=== PATIENT | male | born 1965 | race Caucasian/White ===

== ENCOUNTER 2021-01-13 09:09 | Observation (INO) | payer MEDICARE, OTHER ==
--- NOTE | 2021-01-13 09:30 | ED ---
General Adult HPI - General Chief complaint: Recheck/Abnormal Lab/Rx Stated complaint: Shoulder Pain/SOB/Sent by PCP Time Seen by Provider: 01/13/21 09:21 Source: patient, RN notes reviewed Mode of arrival: ambulatory Limitations: no limitations - History of Present Illness Initial comments: Patient is a pleasant 55-year-old male presenting to the emergency department with chest and shoulder discomfort. Onset of symptoms was around 2 weeks ago. Patient has mild heaviness in his chest. Symptoms do worsen somewhat with exertion. Symptoms have been otherwise fairly stable. Patient does have dyspnea however he believes this is chronic from his smoking, unchanged. No leg pain or swelling. Patient does have strong family history of in the 50s, including his father. Patient did go see a primary care physician yesterday and was advised to come to the emergency department. - Related Data Allergies Allergy/AdvReac Type Severity Reaction Status Date / Time No Known Allergies Allergy Verified 01/13/21 09:17 Review of Systems ROS Statement: Those systems with pertinent positive or pertinent negative responses have been documented in the HPI. ROS Other: All systems not noted in ROS Statement are negative. Constitutional: Denies: fever Eyes: Denies: eye pain ENT: Denies: ear pain Respiratory: Reports: as per HPI. Denies: cough Cardiovascular: Reports: as per HPI, chest pain Endocrine: Denies: fatigue Gastrointestinal: Denies: abdominal pain Genitourinary: Denies: dysuria Musculoskeletal: Denies: back pain Skin: Denies: rash Neurological: Denies: weakness Past Medical History Past Medical History: No Reported History Past Surgical History: No Surgical Hx Reported Past Psychological History: No Psychological Hx Reported Smoking Status: Current every day smoker Past Alcohol Use History: Daily Past Drug Use History: None Reported General Exam Limitations: no limitations General appearance: alert, in no apparent distress Head exam: Present: atraumatic Eye exam: Present: normal appearance Neck exam: Present: normal inspection Respiratory exam: Present: normal lung sounds bilaterally. Absent: chest wall tenderness Cardiovascular Exam: Present: regular rate, normal rhythm Expanded Peripheral pulses: 2+: Radial (R), Radial (L), Posterior Tibialis (R), Posterior Tibialis (L) GI/Abdominal exam: Present: soft. Absent: tenderness Extremities exam: Present: normal inspection. Absent: pedal edema, calf tenderness Neurological exam: Present: alert Psychiatric exam: Present: normal affect, normal mood Skin exam: Present: normal color Course Vital Signs 01/13/21 09:14 Temperature 98.0 F Pulse Rate 77 Respiratory 18 Rate Blood Pressure 141/79 O2 Sat by Pulse 98 Oximetry EKG Findings - EKG Comments: EKG Findings:: Normal sinus rhythm with rate of 77. AR 144. QRS 90. QT 378. QTC or 27. Normal axis. There is some ST changes, possibly from early repolarization. Normal QRS. Medical Decision Making - Medical Decision Making Patient reevaluated and symptom-free with nitroglycerin. Patient updated on results and plan. Case was discussed with Dr. Emanuel, covering for Dr. Gonzalez, who will admit. Case was earlier discussed with Dr. Hawthorne who agreed EKG changes were repolarization. - Lab Data Result diagrams: 01/13/21 09:36 01/13/21 09:36 Lab Results 01/13/21 01/13/21 01/13/21 Range/Units 09:36 09:36 09:36 WBC 6.3 (3.8-10.6) k/uL RBC 4.78 (4.30-5.90) m/uL Hgb 16.8 (13.0-17.5) gm/dL Hct 47.8 (39.0-53.0) % MCV 99.8 (80.0-100.0) fL MCH 35.1 H (25.0-35.0) pg MCHC 35.2 (31.0-37.0) g/dL RDW 13.0 (11.5-15.5) % Plt Count 258 (150-450) k/uL MPV 6.9 Neutrophils % 60 % Lymphocytes % 27 % Monocytes % 8 % Eosinophils % 4 % Basophils % 1 % Neutrophils # 3.8 (1.3-7.7) k/uL Lymphocytes # 1.7 (1.0-4.8) k/uL Monocytes # 0.5 (0-1.0) k/uL Eosinophils # 0.2 (0-0.7) k/uL Basophils # 0.1 (0-0.2) k/uL PT 10.3 (9.0-12.0) sec INR 1.0 (<1.2) APTT 22.6 (22.0-30.0) sec D-Dimer 0.28 (<0.60) mg/L FEU Sodium 138 (137-145) mmol/L Potassium 4.8 (3.5-5.1) mmol/L Chloride 107 (98-107) mmol/L Carbon Dioxide 26 (22-30) mmol/L Anion Gap 5 mmol/L BUN 16 (9-20) mg/dL Creatinine 0.89 (0.66-1.25) mg/dL Est GFR (CKD-EPI)AfAm >90 (>60 ml/min/1.73 sqM) Est GFR (CKD-EPI)NonAf >90 (>60 ml/min/1.73 sqM) Glucose 103 H (74-99) mg/dL Calcium 9.9 (8.4-10.2) mg/dL Magnesium 2.1 (1.6-2.3) mg/dL Total Bilirubin 0.6 (0.2-1.3) mg/dL AST 38 (17-59) U/L ALT 35 (4-49) U/L Alkaline Phosphatase 67 (38-126) U/L Troponin I (0.000-0.034) ng/mL Total Protein 7.1 (6.3-8.2) g/dL Albumin 4.7 (3.5-5.0) g/dL 01/13/21 Range/Units 09:36 WBC (3.8-10.6) k/uL RBC (4.30-5.90) m/uL Hgb (13.0-17.5) gm/dL Hct (39.0-53.0) % MCV (80.0-100.0) fL MCH (25.0-35.0) pg MCHC (31.0-37.0) g/dL RDW (11.5-15.5) % Plt Count (150-450) k/uL MPV Neutrophils % % Lymphocytes % % Monocytes % % Eosinophils % % Basophils % % Neutrophils # (1.3-7.7) k/uL Lymphocytes # (1.0-4.8) k/uL Monocytes # (0-1.0) k/uL Eosinophils # (0-0.7) k/uL Basophils # (0-0.2) k/uL PT (9.0-12.0) sec INR (<1.2) APTT (22.0-30.0) sec D-Dimer (<0.60) mg/L FEU Sodium (137-145) mmol/L Potassium (3.5-5.1) mmol/L Chloride (98-107) mmol/L Carbon Dioxide (22-30) mmol/L Anion Gap mmol/L BUN (9-20) mg/dL Creatinine (0.66-1.25) mg/dL Est GFR (CKD-EPI)AfAm (>60 ml/min/1.73 sqM) Est GFR (CKD-EPI)NonAf (>60 ml/min/1.73 sqM) Glucose (74-99) mg/dL Calcium (8.4-10.2) mg/dL Magnesium (1.6-2.3) mg/dL Total Bilirubin (0.2-1.3) mg/dL AST (17-59) U/L ALT (4-49) U/L Alkaline Phosphatase (38-126) U/L Troponin I <0.012 (0.000-0.034) ng/mL Total Protein (6.3-8.2) g/dL Albumin (3.5-5.0) g/dL Disposition Clinical Impression: Chest pain Disposition: ADMITTED IP TO THIS [facility] Is patient prescribed a controlled substance at d/c from ED?: No Referrals: Pawan Gonzalez MD [Primary Care Provider] - 1-2 days Decision Time: 11:22
[2021-01-13] MEDS ORDERED: NITROGLYCERIN OINT 1 INCH/GM PACKET TOPICAL STA (09:33)
[2021-01-13] MEDS ORDERED: ASPIRIN 81 MG PO STA (09:33)
[2021-01-13 09:44] LABS: Basophils # (A) 0.1 k/uL (0-0.2); Basophils % (A) 1 %; Eosinophils # (A) 0.2 k/uL (0-0.7); Eosinophils % (A) 4 %; HCT 47.8 % (39.0-53.0); HGB 16.8 gm/dL (13.0-17.5); Lymphocytes # (A) 1.7 k/uL (1.0-4.8); Lymphocytes % (A) 27 %; MCH 35.1 pg (25.0-35.0); MCHC 35.2 g/dL (31.0-37.0); MCV 99.8 fL (80.0-100.0); Mean Platelet Volume 6.9; Monocytes # (A) 0.5 k/uL (0-1.0); Monocytes % (A) 8 %; Neutrophils # (A) 3.8 k/uL (1.3-7.7); Neutrophils % (A) 60 %; Platelet Count 258 k/uL (150-450); RBC 4.78 m/uL (4.30-5.90); WBC 6.3 k/uL (3.8-10.6)
[2021-01-13 09:53] LABS: ALT 35 U/L (4-49); AST 38 U/L (17-59); African American GFR (CKD) >90 (>60 ml/min/1.73 sqM); Albumin 4.7 g/dL (3.5-5.0); Alkaline Phosphatase 67 U/L (38-126); Anion Gap 5 mmol/L; Blood Urea Nitrogen 16 mg/dL (9-20); Calcium 9.9 mg/dL (8.4-10.2); Carbon Dioxide 26 mmol/L (22-30); Chloride 107 mmol/L (98-107); Glucose 103 mg/dL (74-99); Magnesium 2.1 mg/dL (1.6-2.3); Non-African American GFR(CKD) >90 (>60 ml/min/1.73 sqM); Potassium 4.8 mmol/L (3.5-5.1); Sodium 138 mmol/L (137-145); Total Bilirubin 0.6 mg/dL (0.2-1.3); Total Protein 7.1 g/dL (6.3-8.2)
--- NOTE | 2021-01-13 09:57 | XR ---
EXAMINATION TYPE: XR chest 2V DATE OF EXAM: 01/13/2021 COMPARISON: NONE HISTORY: Shortness of breath TECHNIQUE: Frontal and lateral views of the chest are obtained. FINDINGS: Scattered senescent parenchymal changes noted. Hyperinflation compatible with COPD. No evidence for infiltrate. No evidence for atelectasis. Heart size is stable. Mediastinal structures are stable and grossly unremarkable. No evidence for hilar prominence. Degenerative changes dorsal spine. IMPRESSION: 1. No evidence for acute pulmonary disease.
[2021-01-13 10:01] LABS: D-Dimer 0.28 mg/L FEU (<0.60); Partial Thromboplastin Time 22.6 sec (22.0-30.0); Prothrombin Time 10.3 sec (9.0-12.0)
[2021-01-13] MEDS ORDERED: NITROGLYCERIN SL TABS 0.4 MG TAB SUBLINGUAL PRN (11:23)
[2021-01-13] MEDS ORDERED: HYDROcodone/APAP 5-325MG 1 EACH TAB PO PRN (15:23)
[2021-01-13] MEDS ORDERED: HYDROmorphone 0.5 MG/0.5 ML SYRINGE IVP PRN (15:23)
[2021-01-13] MEDS ORDERED: ALPRAZolam 0.25 MG TAB PO PRN (15:23)
[2021-01-13] MEDS ORDERED: TEMAZEPAM 15 MG CAP PO PRN (15:23)
--- NOTE | 2021-01-13 16:33 | HP ---
HISTORY AND PHYSICAL DATE OF SERVICE: 01/13/2021 CHIEF COMPLAINT: Shoulder pain and chest pain. HISTORY OF PRESENT ILLNESS: This 55-year-old gentleman with a past medical history of no significant medical issues being followed by Dr. Pawan Gonzalez was admitted with chest and shoulder discomfort. The pain started in the right shoulder about 2 weeks ago and the patient was having heaviness in the chest and the pain was somewhat worsening with exertion. Patient came to [facility] and was admitted for further evaluation and treatment. There is no history of fever, rigors. No history of headache, loss of consciousness or seizures. Troponins are negative. Initial EKG which was reviewed personally by me showed some ST elevation, possibly suggestive of early repolarization and the patient admitted for further evaluation and treatment. Repeat EKG also had the same similar findings. There is no history of fever, rigors, chills at this time. PAST MEDICAL HISTORY: No significant cardiovascular illness. MEDICATIONS: Current medications prior to admission: None. ALLERGIES: None. FAMILY HISTORY: No history of heart disease or strokes in the family. SOCIAL HISTORY: History of smoking. Daily alcohol. REVIEW OF SYSTEMS: ENT: No diminished hearing. No diminished vision. CARDIOVASCULAR system as mentioned earlier. RESPIRATORY: As mentioned earlier. GI: No nausea or vomiting. : No dysuria. NERVOUS SYSTEM: No numbness or weakness. ALLERGY/IMMUNOLOGY: No asthma or hay fever. MUSCULOSKELETAL as mentioned earlier. HEMATOLOGY/ONCOLOGY: No history of diabetes or hypothyroidism. CONSTITUTIONAL: As mentioned earlier. DERMATOLOGY: Negative. RHEUMATOLOGY negative. PSYCHIATRY as mentioned earlier. PHYSICAL EXAMINATION: Alert and oriented times three. Pulse 77, blood pressure 141/70, respiration 18, temperature 98 degrees, pulse ox 98% on room air. HEENT: Conjunctivae normal. NECK: No JVD. No carotid bruit. No lymph node enlargement. CARDIOVASCULAR SYSTEM: S1, S2 muffled. No S3, no S4. RESPIRATORY: Breath sounds diminished in the bases. ABDOMEN: Soft, nontender. No mass palpable. LEGS: No edema. No swelling. NERVOUS SYSTEM: Higher functions as mentioned earlier. Moves all 4 limbs. No focal motor or sensory deficits. LYMPHATICS: No lymph nodes palpable in the neck, axillae or groin. SKIN: No ulcer, no rash and no bleeding. JOINTS: No active deforming arthropathy. LABS: WBC 6.3, sodium 138, potassium 4.8. Other labs are noted. ASSESSMENT: 1. Chest pain, possible unstable angina. 2. Right shoulder pain. 3. Persistent ST elevation in the EKG anterior leads, possibly early repolarization changes. 4. History of nicotine dependence. RECOMMENDATIONS AND DISCUSSION: This 55-year-old gentleman who presented with multiple complex medical issues, we will monitor the patient closely. Continue the current medications. We will continue with unstable angina protocol. Cardiology consultation. Two-D echo with Doppler. Otherwise, repeat EKGs. Prognosis guarded because of multiple complex medical issues. Further recommendations to follow. Smoking cessation has been advised. A copy of this dictation being forwarded to Dr. Pawan Gonzalez. MMEMILIL / IJN: [id number] /
[2021-01-13] MEDS: NICOTINE 14MG/24HR PATCH TRANSDERM SCH (17:03)
[2021-01-13] MEDS: HEPARIN SODIUM,PORCINE/PF 5,000 UNIT/0.5 ML SYRINGE SQ SCH (20:23)
[2021-01-13] MEDS: SODIUM CHLORIDE 0.9% 1,000 ML IV SCH (20:24)
[2021-01-14 07:50] VITALS: BP 121/70; PULSE 57; RESP 16; TEMP 98.1
[2021-01-14] MEDS: HEPARIN SODIUM,PORCINE/PF 5,000 UNIT/0.5 ML SYRINGE SQ SCH (08:56)
[2021-01-14] MEDS: NICOTINE 14MG/24HR PATCH TRANSDERM SCH (08:57)
[2021-01-14] MEDS ORDERED: ASPIRIN 325 MG TAB PO SCH (09:00)
[2021-01-14] MEDS ORDERED: ASPIRIN 81 MG PO SCH (09:00)
[2021-01-14 10:33] LABS: African American GFR (CKD) 109.5 (60.0-200.0); Anion Gap 6.3 mmol/L (4.00-12.00); BUN/Creat Ratio 22.22 Ratio (12.00-20.00); Carbon Dioxide 25.7 mmol/L (21.6-31.8); Chol/HDL Ratio 2.53; LDL Cholesterol,Calculated 86.8 mg/dL (0.0-131.0); Non-African American GFR(CKD) 94.5 (60.0-200.0); Potassium 4.7 mmol/L (3.5-5.5); VLDL Calculation 26.2 mg/dL (5.00-40.00)
--- NOTE | 2021-01-14 11:33 | P.CRDCN ---
History of Present Illness Consult date: 01/14/21 History of present illness: HISTORY OF PRESENT ILLNESS: This is a 55-year-old male with a past medical history significant for nicotine dependence and family history of premature coronary artery disease. Patient does not follow with a edge roller. We have been asked to see the patient in consultation for chest pain. Patient examined at the bedside. Patient states he has not seen a primary care physician and many years. However he recently got insurance and went to see Mykel Devlin NP with Dr. Gonzalez and was told to come to the hospital for further evaluation. Patient states he has been having episodes of "eye floaters" and dizziness when changing positions quickly. He states this only last for a few seconds and then goes away. Patient reports having some right shoulder pain which he believes is musculoskeletal. Patient denies any episodes of chest pain or pressure. He denies shortness of breath. Patient states he is able to ambulate to the bathroom without any discomfort or shortness of breath. He denies any nausea or vomiting. Currently denies any dizziness or lightheadedness. Patient reports a family history of coronary artery disease and states his dad had a heart attack when he was in his 50s. Patient reports he is a daily smoker and smokes 1 pack per day. He reports alcohol use 2-3 times a week. EKG reveals sinus mechanism with early repolarization Chest xray no evidence for acute pulmonary disease Laboratory data: WBC 6.3. Hemoglobin 16.8. Platelet count 258. D-dimer 0.28. Sodium 138. Potassium 4.8. BUN 16. Creatinine 0.89. Troponin negative 3. Current home cardiac medications include none REVIEW OF SYSTEMS: At the time of my exam: CONSTITUTIONAL: Denies fever or chills. HEENT: Denies blurred vision, vision changes, or eye pain. Denies hemoptysis CARDIOVASCULAR: Denies chest pain. Denies orthopnea. Denies PND. Denies palpitations RESPIRATORY: Denies shortness of breath. GASTROINTESTINAL: Denies abdominal pain. Denies nausea or vomiting. HEMATOLOGIC: Denies bleeding disorders. GENITOURINARY: Denies any blood in urine. SKIN: Denies pruitis. Denies rash. PHYSICAL EXAM: VITAL SIGNS: Reviewed. GENERAL: Well-developed in no acute distress. HEENT: Head is normocephalic. Pupils are equal, round. Sclerae anicteric. Mucous membranes of the mouth are moist. Neck supple. No JVD or thyromegaly LUNGS: Respirations even and unlabored. Lungs essentially clear to auscultation bilaterally. HEART: Regular rate and rhythm. S1 and S2 heard. ABDOMEN: Soft. Nondistended. Nontender. EXTREMITIES: Normal range of motion. No clubbing or cyanosis. Peripheral pulses intact. No lower extremity edema NEUROLOGIC: Awake and alert. Oriented x 3. ASSESSMENT: Chest pain, ruled out, patient denied ever having chest pain Chronic right shoulder pain Postural dizziness with "eye floaters" Nicotine dependence Family history of premature coronary artery disease PLAN: An acute coronary event has been ruled out Decrease aspirin to 81 mg daily Smoking cessation recommended Orthostatic blood pressures checked and unremarkable. Patient may be discharged home today from a cardiac standpoint He is to follow up on an outpatient basis for echocardiogram and stress testing Nurse practitioner note has been reviewed by physician. Signing provider agrees with the documented findings, assessment, and plan of care. Past Medical History Past Medical History: No Reported History History of Any Multi-Drug Resistant Organisms: None Reported Past Surgical History: No Surgical Hx Reported Past Anesthesia/Blood Transfusion Reactions: No Reported Reaction Past Psychological History: No Psychological Hx Reported Smoking Status: Current every day smoker Past Alcohol Use History: Daily Past Drug Use History: None Reported - Past Family History Mother Family Medical History: No Reported History Father Family Medical History: Myocardial Infarction (CT) Medications and Allergies Home Medications Medication Instructions Recorded Confirmed Type Aspirin 81 mg PO DAILY #30 chew 01/14/21 Rx Allergies Allergy/AdvReac Type Severity Reaction Status Date / Time No Known Allergies Allergy Verified 01/13/21 11:24 Physical Exam Vitals: Vital Signs Temp Pulse Pulse Pulse Pulse Pulse Resp 01/14/21 07:30 98.1 F 57 L 16 01/14/21 01:19 98.0 F 97 18 01/13/21 20:00 18 01/13/21 19:10 98.3 F 67 18 01/13/21 18:19 68 75 63 01/13/21 15:50 98.4 F 64 16 01/13/21 11:25 68 18 01/13/21 09:14 98.0 F 77 18 BP BP BP BP BP Pulse Ox 01/14/21 07:30 121/70 97 01/14/21 01:19 122/68 97 01/13/21 20:00 06/26/21 19:10 112/64 96 01/13/21 18:19 124/76 116/74 123/71 01/13/21 15:50 118/70 95 01/13/21 11:25 127/88 95 01/13/21 09:14 141/79 98 Intake and Output 01/13/21 01/14/21 01/14/21 22:59 06:59 14:59 Intake Total 450 Balance 450 Intake: Oral 450 Other: Voiding Method Toilet # Voids 2 3 Weight 74.389 kg Results 01/13/21 09:36 01/14/21 05:01 Cardiac Enzymes 01/13/21 01/13/21 01/13/21 Range/Units 09:36 09:36 11:45 AST 38 (17-59) U/L Troponin I <0.012 <0.012 (0.000-0.034) ng/mL 01/13/21 Range/Units 15:27 AST (17-59) U/L Troponin I <0.012 (0.000-0.034) ng/mL Coagulation 01/13/21 Range/Units 09:36 PT 10.3 (9.0-12.0) sec APTT 22.6 (22.0-30.0) sec CBC 01/13/21 Range/Units 09:36 WBC 6.3 (3.8-10.6) k/uL RBC 4.78 (4.30-5.90) m/uL Hgb 16.8 (13.0-17.5) gm/dL Hct 47.8 (39.0-53.0) % Plt Count 258 (150-450) k/uL Comprehensive Metabolic Panel 01/13/21 Range/Units 09:36 Sodium 138 (137-145) mmol/L Potassium 4.8 (3.5-5.1) mmol/L Chloride 107 (98-107) mmol/L Carbon Dioxide 26 (22-30) mmol/L BUN 16 (9-20) mg/dL Creatinine 0.89 (0.66-1.25) mg/dL Glucose 103 H (74-99) mg/dL Calcium 9.9 (8.4-10.2) mg/dL AST 38 (17-59) U/L ALT 35 (4-49) U/L Alkaline Phosphatase 67 (38-126) U/L Total Protein 7.1 (6.3-8.2) g/dL Albumin 4.7 (3.5-5.0) g/dL Current Medications Generic Name Dose Route Start Last Admin Trade Name Freq PRN Reason Stop Dose Admin Hydrocodone Bitart/Acetaminophen 1 each 01/13/21 15:23 Hydrocodone/Apap 5-325mg 1 Each Tab PO Q6HR PRN Pain Alprazolam 0.25 mg 01/13/21 15:23 Alprazolam 0.25 Mg Tab PO TID PRN Anxiety Aspirin 325 mg 01/14/21 09:00 Aspirin 325 Mg Tab PO DAILY REVA Heparin Sodium (Porcine) 5,000 unit 01/13/21 21:00 01/13/21 20:23 Heparin Sodium,Porcine/Pf 5,000 Unit/0.5 Ml Syringe SQ 5,000 unit Q12HR REVA Administration Hydromorphone HCl 0.5 mg 01/13/21 15:23 Hydromorphone 0.5 Mg/0.5 Ml Syringe IVP Q6HR PRN Severe Pain Sodium Chloride 1,000 mls @ 75 mls/hr 01/13/21 15:30 01/13/21 20:24 Saline 0.9% IV Not Given .[id number] REVA Multivitamins 1 each 01/14/21 12:00 Multivitamins, Thera 1 Each Tab PO DAILY@1200 [facility] Nicotine 1 patch 01/13/21 15:30 01/13/21 17:03 Nicotine 14mg/24hr Patch TRANSDERM Not Given DAILY [facility] Nitroglycerin 0.4 mg 01/13/21 11:23 Nitroglycerin Sl Tabs 0.4 Mg Tab SUBLINGUAL Q5M PRN Chest Pain Sodium Chloride 10 ml 01/13/21 21:00 01/13/21 20:23 Sodium Chloride 0.9% Flush 10 Ml Syringe IV 10 ml BID REVA Administration Temazepam 15 mg 01/13/21 15:23 Temazepam 15 Mg Cap PO HS PRN Insomnia Intake and Output 01/13/21 01/14/21 01/14/21 22:59 06:59 14:59 Intake Total 450 Balance 450 Intake: Oral 450 Other: Voiding Method Toilet # Voids 2 3 Weight 74.389 kg 01/13/21 09:36 01/13/21 09:36
[2021-01-14] MEDS ORDERED: MULTIVITAMINS, THERA 1 EACH TAB PO SCH (12:00)
[2021-01-14] MEDS: SODIUM CHLORIDE 0.9% 1,000 ML IV SCH (12:01)
--- NOTE | 2021-01-14 19:21 | DS ---
DISCHARGE SUMMARY DATE OF SERVICE: 01/14/2021 FINAL DIAGNOSES: 1. Chest pain, myocardial function ruled out, rule out coronary artery disease. 2. Chronic bronchitis. 3. History of nicotine dependence. 4. Right shoulder pain. 5. Persistent ST elevation in the EKG in the anterior leads, possibly early repolarization changes. DISCHARGE DISPOSITION: The patient will be discharged in stable condition with guarded prognosis. Discharge cleared by Cardiology. HISTORY OF PRESENT ILLNESS: This 55-year-old gentleman with past medical history of multiple medical problems was admitted with chest pain. Patient was treated conservatively and myocardial infarction ruled out. Cardiology recommended outpatient stress test. The patient is chest pain free at this time. Patient is keen on going home. On exam, vitals are stable. Cardiovascular: S1, S2. Abdomen soft. Nervous system: No focal deficits. DISCHARGE ADVICE AND MEDICATIONS: 1. Diet is cardiac diet. 2. Activity limited until followup. 3. Follow up with Dr. Pawan Gonzalez in 1-2 days. 4. Follow up with Dr. Rupa Hawthorne as recommended. 5. Outpatient stress by Cardiology. 6. Aspirin 81 mg p.o. daily. MMODL / IJN: [id number] /
== END 2021-01-14 12:33 | disposition home or self-care (01) ==
LOC: EC 09:09 → 6NMEDSUR 11:23
PROVIDERS: ADMIT Hospitalist; ATTEND Hospitalist
DX: R07.89 Other chest pain (principal); J42 Unspecified chronic bronchitis; Z87.891 Personal history of nicotine dependence; M25.511 Pain in right shoulder; R94.31 Abnormal electrocardiogram [ECG] [EKG]; R42 Dizziness and giddiness; H43.399 Other vitreous opacities, unspecified eye; Z20.822 Contact with and (suspected) exposure to COVID-19; Z79.82 Long term (current) use of aspirin; Z82.49 Family history of ischemic heart disease and other diseases of the circulatory system
CPT/HCPCS: 96372; 93005 ×2; 99285; 36415; 94760; 85379; 83880; 80061; 80053; 80048; 82150; 83735; 84484; 85025; 85610; 85730; 87635; 71046; G0378 ×2; J1644

== ENCOUNTER → 2023-07-25 | Outpatient (CLI) | payer OTHER ==
--- NOTE | 2023-07-25 11:42 | XR ---
EXAMINATION TYPE: XR chest 2V DATE OF EXAM: 07/25/2023 COMPARISON: None INDICATION: Left-sided rib pain TECHNIQUE: Frontal and lateral views of the chest are obtained. FINDINGS: The heart size is normal. The pulmonary vasculature is normal. The lungs are clear. The inspiratory effort is present. No pneumothorax is evident. IMPRESSION: 1. No acute pulmonary process.
--- NOTE | 2023-07-25 11:43 | XR ---
EXAMINATION TYPE: XR ribs LT DATE OF EXAM: 07/25/2023 COMPARISON: Chest x-ray same date HISTORY: Pain following lifting TECHNIQUE: 2 view left RIBS FINDINGS: No acute fractures are evident. No displaced fractures identified. No pneumothorax is evide nt. IMPRESSION: 1. Normal 2 view left RIBS
== END | disposition home or self-care (01) ==
LOC: RADXRMAIN 10:56
PROVIDERS: ATTEND Emergency Medicine
DX: S29.019A Strain of muscle and tendon of unspecified wall of thorax, initial encounter (principal); R07.81 Pleurodynia
CPT/HCPCS: 71046

== ENCOUNTER 2024-02-23 11:42 | Emergency (ER) | payer OTHER ==
[2024-02-23] MEDS ORDERED: ACET/COD 300 MG/30 MG STARTER PACK 6 TAB BTL PO ONE (13:50)
--- NOTE | 2024-04-06 11:53 | XR ---
Patient Pravin Roblero ID [id number] Order # EXAMINATION TYPE: XR shoulder complete LT DATE OF EXAM: 03/07/2024 COMPARISON: NONE HISTORY: Pain TECHNIQUE: Shoulder examined in 3 projections. FINDINGS: The humeral head articulates with the glenoid. The acromio-clavicular junction is minimal degenerative change No acute fractures or dislocations are evident. Sign there may be some narrowing of the acromiohumera l space. Rotator cuff tear may be present. Consider MRI for additional evaluation. Preliminary results were provided by the on-call radiologist A follow up study can be performed 7-10 days from acute trauma for continued pain. MRI can be perfor med if soft tissue evaluation would be of benefit. IMPRESSION: 1. No acute osseous shoulder abnormality. 2. There may be rotator cuff tear present. Consider MRI for additional workup
--- NOTE | 2024-04-06 13:51 | XR ---
EXAMINATION TYPE: XR humerus LT DATE OF EXAM: 03/04/2024 COMPARISON: No comparison available on downtime PACS. HISTORY: Pain tree fell on TECHNIQUE: 2 view left humerus FINDINGS: No acute fractures evident. The acromiohumeral space appears narrowed suggesting underlyin g rotator cuff tear. Joint spaces otherwise appear normal. No elevation of anterior fat pad is evid ent. No posterior fat pad elevation. Preliminary results were provided by the on-call radiologist. IMPRESSION: 1. No acute osseous abnormality. [facility], , 04/06/2024 1:48 PM
== END 2024-02-23 13:55 | disposition home or self-care (01) ==
LOC: EC 11:42
CPT/HCPCS: 99283